=== PATIENT | male | born 1985 | race Two or more races ===

== ENCOUNTER 2021-03-02 18:13 | Emergency (ER) | payer SELFPAY ==
[~2021-03-02] VITALS: Ht 167.6 cm; Wt 107.0 kg
[~2021-03-02 18:13] MED LIST: CEFAZOLIN 1,000 MG ONE; DEXAMETHASONE 4 MG/ML, 1ML ONE; FENTANYL PF 100 MCG/2ML ONE; KETOROLAC 30 MG/1 ML ONE; ONDANSETRON 2MG/ML, 2ML ONE
[2021-03-02 18:57] LABS: BASOPHILS % (AUTO) 1 % (0-1); EOSINOPHILS % (AUTO) 2 % (1-7); LYMPHOCYTES % (AUTO) 39 % (22-44); MEAN CORPUSCULAR HGB CONC 34.5 g/dL (33.2-36.2); MEAN PLATELET VOLUME 9.1 fL (7.4-10.4); MONOCYTES % (AUTO) 7 % (2-9); NEUTROPHILS % (AUTO) 51 % (42-75); PLATELET COUNT 244 x10^3/uL (130-400); RED BLOOD COUNT 4.98 x10^6/uL (4.38-5.82)
[2021-03-02 19:08] LABS: ALANINE AMINOTRANSFERASE 69 U/L (12-78); ALBUMIN 3.6 g/dL (3.4-5.0); ANION GAP 3 mmol/L (5-15); CALCIUM 8.7 mg/dL (8.5-10.1); CHLORIDE 107 mmol/L (98-107)
[2021-03-02 19:12] LABS: ALKALINE PHOSPHATASE 85 U/L (45-117); BILIRUBIN,TOTAL 0.3 mg/dL (0.2-1.0); CREATININE 0.97 mg/dL (0.7-1.3); TOTAL PROTEIN 7.2 g/dL (6.4-8.2); TROPONIN I < 0.015 ng/mL (0.000-0.045)
--- NOTE | 2021-03-02 20:25 | NUR ---
pt to room from lobby
--- NOTE | 2021-03-02 20:28 | NUR ---
THIS IS A 35M THAT COMES IN WITH C/O CP UPON DEEP RESPIRATION. STS HE HAS NOT HAD COUGH FEVER OR SOB, DENIES N/V/D OR RADIATION OF PAIN. PT STS HIS CHILDREN HAVE HAD COUGH FOR 2DAYS.
[2021-03-02 20:38] VITALS: BP 128/90
[2021-03-02] MEDS ORDERED: MAALOX/HYOSCYAMINE/LIDOCAINE 45 ML BTL ONE (20:59)
[2021-03-02] MEDS ORDERED: MAALOX/HYOSCYAMINE/LIDOCAINE 45 ML BTL PO ONE (21:00)
--- NOTE | 2021-03-02 21:01 | NUR ---
pt medicated per aug 07 rights verified
== END 2021-03-02 21:10 | disposition home or self-care (01) ==
LOC: ED 21:00
DX: R07.89 Other chest pain (principal); R09.1 Pleurisy
CPT/HCPCS: 36415; 71046; 80053; 84484; 85025; 93005; 99285